=== PATIENT | male | born 1955 | race Caucasian/White ===

== ENCOUNTER → 2017-07-09 | Outpatient (CLI) | payer BC ==
--- NOTE | 2017-07-09 10:53 | US ---
EXAMINATION TYPE: US abdomen complete DATE OF EXAM: 07/09/2017 COMPARISON: NONE CLINICAL HISTORY: D61.818 Pancytopenia, I10 Hypertension; HT6'3, WT 300lbs EXAM MEASUREMENTS: Liver Length: 21.4 cm Gallbladder Wall: 2.7mm CBD: 0.3 cm Spleen: 20.2 x 21.5 x 10.9 cm Right Kidney: 12.5 x 6.4 x 5.3 cm Left Kidney: 12.4 x 6.1 x 4.6 cm Pancreas: hyperechoic Liver: enlarged; Portal Vein flow is documented to liver and Hepatic Vein flow is to IVC, and Common Hepatic Artery Flow is to liver. Hepatic echotexture is hyperechoic with diminished visualization of the portal triads. This limits evaluation for hepatic masses. Additionally there is a slight nodul ar contour of the liver. Gallbladder: wnl Evidence for sonographic Yang's sign: No CBD: wnl Spleen: Markedly enlarged Right Kidney: No hydronephrosis or masses seen Left Kidney: No hydronephrosis or masses seen Upper IVC: wnl Abd Aorta: wnl as visualized due to patient body habitus IMPRESSION: 1. No evidence of portal venous occlusion. Appropriate directionality of flow within the portal vein, hepatic vein and hepatic artery. 2. Enlarged and hyperechoic hepatic echotexture. Although this most commonly relates to hepatic steat osis there is also a nodular contour the liver and correlation with serum laboratory values is recomm ended as this could also represent other underlying hepatocellular diseases. 3. Marked enlargement of the spleen measuring up to 21.5 cm.
== END | disposition home or self-care (01) ==
LOC: RADUSWWP 08:03
PROVIDERS: ATTEND Internal Medicine Hematology & Oncology
DX: K76.89 Other specified diseases of liver (principal); D61.818 Other pancytopenia; I10 Essential (primary) hypertension; E11.9 Type 2 diabetes mellitus without complications; R16.1 Splenomegaly, not elsewhere classified; R93.2 Abnormal findings on diagnostic imaging of liver and biliary tract
CPT/HCPCS: 76700

== ENCOUNTER 2017-07-17 06:03 | Day surgery (SDC) | payer BC ==
[~2017-07-17 06:03] MED LIST: LACTATED RINGERS 1,000 ML IV SCH; LIDOCAINE 1% 20 ML VIAL (10MG/ML) FOR IV START INTRADERMA PRN
[2017-07-17 07:09] VITALS: TEMP 98.6
[2017-07-17 07:18] LABS: Glucose,Whole Blood 194 mg/dL (75-99)
[2017-07-17] MEDS ORDERED: MIDAZOLAM 2 MG/2 ML VIAL ONE (07:34)
[2017-07-17] MEDS ORDERED: ePHEDrine SULFATE/0.9% NACL/PF 50 MG/5 ML SYRINGE IV ONE (07:34)
[2017-07-17] MEDS ORDERED: PROPOFOL 10 MG/ML 20 ML VIAL IV ONE (07:34)
[2017-07-17] MEDS ORDERED: LIDOCAINE 1% INJ 10MG/ML (20 ML MDV) ONE (07:34)
[2017-07-17] MEDS ORDERED: LIDOCAINE 2% INJ 20 MG/ML SQ ONE ×2 (07:35→07:46)
[2017-07-17 08:33] VITALS: BP 138/60; PULSE 77; RESP 18
[2017-07-17 09:13] LABS: Basophils % (A) 0 %; Eosinophils # (A) 0.2 k/uL (0-0.7); Eosinophils % (A) 7 %; HCT 35.8 % (39.0-53.0); HGB 12.6 gm/dL (13.0-17.5); Lymphocytes # (A) 0.6 k/uL (1.0-4.8); Lymphocytes % (A) 20 %; MCH 31.8 pg (25.0-35.0); MCHC 35.2 g/dL (31.0-37.0); MCV 90.5 fL (80.0-100.0); Mean Platelet Volume 8.5; Monocytes # (A) 0.2 k/uL (0-1.0); Monocytes % (A) 6 %; Neutrophils # (A) 1.8 k/uL (1.3-7.7); Neutrophils % (A) 65 %; RBC 3.95 m/uL (4.30-5.90); RDW 14.1 % (11.5-15.5); WBC 2.8 k/uL (3.8-10.6)
[2017-07-17 10:27] LABS: Platelet Count 88 k/uL (150-450)
--- NOTE | 2017-07-17 11:13 | PCN ---
PROCEDURE NOTE PREOPERATIVE DIAGNOSIS: Pancytopenia. POSTOPERATIVE DIAGNOSIS: Pancytopenia. ANESTHESIA: Local with IV systemic sedation. PROCEDURE: Bone marrow aspirate and biopsy site right iliac crest. DETAIL: Utilizing sterile technique, the skin overlying the right iliac crest was prepared with alcohol, after adequate sterile draping, systemic sedation and local anesthesia with 1% lidocaine, a size 11 4 inch StatSheetshidi needle was utilized to access the periosteum with some difficulty due to patient habitus. A total of 5 mL of aspirate and 5 mm of core biopsies were obtained. The patient tolerated the procedure well. There was no immediate procedure-related complication. TOTAL BLOOD LOSS: Less than 1 mL. RESULTS: Pending. MMODL / IJN: [id number] /
== END 2017-07-17 09:05 | disposition home or self-care (01) ==
LOC: OR 06:03
PROVIDERS: ATTEND Internal Medicine Hematology & Oncology
DX: D61.818 Other pancytopenia (principal); K76.0 Fatty (change of) liver, not elsewhere classified; E11.9 Type 2 diabetes mellitus without complications; I10 Essential (primary) hypertension; E03.9 Hypothyroidism, unspecified; N28.9 Disorder of kidney and ureter, unspecified; E66.01 Morbid (severe) obesity due to excess calories; Z68.38 Body mass index [BMI] 38.0-38.9, adult; Z79.84 Long term (current) use of oral hypoglycemic drugs; Z79.1 Long term (current) use of non-steroidal anti-inflammatories (NSAID); Z79.890 Hormone replacement therapy; Z79.4 Long term (current) use of insulin; Z79.899 Other long term (current) drug therapy; Z91.048 Other nonmedicinal substance allergy status; Z91.040 Latex allergy status; Z87.891 Personal history of nicotine dependence
CPT/HCPCS: 85025; 38222; J2001 ×2; J2250; J2704

== ENCOUNTER → 2017-08-14 | Outpatient (CLI) | payer BC ==
[2017-08-14 17:25] LABS: Blood Urea Nitrogen 18 mg/dL (9-20)
--- NOTE | 2017-08-15 09:09 | CT ---
EXAMINATION TYPE: CT abdomen pelvis wo/w con DATE OF EXAM: 08/14/2017 COMPARISON: Abdominal ultrasound dated 07/09/2017. HISTORY: Left side abd pain. CT DLP: 3695 mGycm Automated exposure control for dose reduction was used. TECHNIQUE: Helical acquisition of images was performed from the lung bases through the pelvis. CONTRAST: Performed with Oral Contrast and with IV Contrast, patient injected with 100ml mL of Isovue M300. Pre contrast images were obtained of the abdomen. FINDINGS: LUNG BASES: No significant abnormality is appreciated. LIVER/GB: There is a very mild nodular contour of the liver that in combination with the prior ultras ound findings may relate to hepatocellular disease. Given the below splenic findings Constellation of findings may relate to portal venous hypertension as the portal vein is engorged near the portal spl enic confluence measuring 2.1 cm. No gross evidence of portal venous thrombosis. Recanalization of th e umbilical vein is identified. PANCREAS: No significant abnormality is seen. No ductal dilatation. SPLEEN: There is marked splenomegaly with the spleen measuring 20.0 cm in craniocaudal dimension and 23.2 cm in anterior posterior (longitudinal) dimension. Perisplenic varices are noted within the mese ntery of the splenic hilum and lateral to the spleen. Splenule is noted adjacent to the [place] spleen . ADRENALS: No significant abnormality is seen. KIDNEYS: Superior-medial to the left kidney there is a nonenhancing fluid attenuated 7.4 x 4.0 cm les ion within the retroperitoneum. This does not demonstrate a definitive claw sign with the left kidney and does not appear to emanate from the adrenal gland. This appears to have mass effect upon the adr enal gland displacing it anterior laterally. 3 mm nonobstructing left lower pole renal calculus is seen. 1.3 cm right lower pole renal cyst is pre sent. Punctate 2 mm right upper pole nonobstructing calculus is present. No hydronephrosis bilaterall y. FREE AIR: No free air is visualized. ADENOPATHY: Few nonenlarged epiphrenic lymph nodes are seen. No greater than 1 cm short axis lymph n odes are noted within the abdomen or pelvis. REPRODUCTIVE ORGANS: No significant abnormality is seen URINARY BLADDER: Incompletely distended likely accounting for circumferential wall thickening. OSSEOUS STRUCTURES: Moderate multilevel degenerative changes of the visualized thoracolumbar and lum bosacral spine. Extensive degenerative changes with CAM deformities of the femoral acetabular joints are seen. BOWEL: There is mild fat stranding around the hepatic flexure from series 6 image 41 inferiorly to i mage 54. In the setting of portal venous hypertension and cirrhosis this may represent congestive col opathy and mild mesenteric edema without preethi ascites. Few scattered colonic diverticula are present without evidence of acute diverticulitis. Minimal fat s tranding is also seen within the left lateral conal fascia likely related to mesenteric congestion. IMPRESSION: 1. CONSTELLATION OF FINDINGS SUGGESTING HEPATIC CIRRHOSIS AND UNDERLYING PORTAL VENOUS HYPERTENSION. THESE FINDINGS INCLUDE SUBTLE NODULAR CONTOUR OF THE LIVER, MARKED SPLENOMEGALY, PROBABLE CONGESTIVE COLOPATHY OF THE HEPATIC FLEXURE, MILD MESENTERIC EDEMA, PORTAL VEIN ENLARGEMENT AND PERISPLENIC VARI NATE. 2. NONENHANCING FLUID ATTENUATED RETROPERITONEAL LESION. THIS IS NOT DEFINITIVELY CONNECTED TO THE LE FT UPPER POLE OF THE KIDNEY BUT COULD REPRESENT AN EXOPHYTIC RENAL CYST, LYMPHANGIOMA, BENIGN MESENTE GLENN/RETROPERITONEAL CYST OR LESS LIKELY EXTRA MEDULLARY HEMATOPOIESIS. SHORT-TERM FOLLOW-UP IS RECOMM ENDED TO ENSURE STABILITY IN 6 MONTHS ETIOLOGY IS UNKNOWN. 3. BILATERAL NONOBSTRUCTING RENAL CALCULI.
== END | disposition home or self-care (01) ==
LOC: RADCTMAIN 16:43
DX: Z01.812 Encounter for preprocedural laboratory examination (principal); N20.0 Calculus of kidney; R16.1 Splenomegaly, not elsewhere classified; R19.09 Other intra-abdominal and pelvic swelling, mass and lump; D61.818 Other pancytopenia
CPT/HCPCS: 82565; 84520; 74178; 36415; Q9967

== ENCOUNTER → 2019-06-10 | Outpatient (CLI) | payer MEDICARE ==
--- NOTE | 2019-06-10 10:21 | US ---
EXAMINATION TYPE: US abdomen limited DATE OF EXAM: 06/10/2019 COMPARISON: NONE CLINICAL HISTORY: 64-year-old male K74.60 Unspecified cirrhosis of liver. TECHNIQUE: Multiple sonographic images of the right upper quadrant are obtained. FINDINGS: EXAM MEASUREMENTS: Liver Length: 15.9 cm Gallbladder Wall: 0.5 cm CBD: 5.8 mm Right Kidney: 11.7 x 4.8 x 5.6 cm VACUUM CLOSING MACHINE OPERATOR NOTES: Patient of large body habitus. Pancreas: Obscured by bowel gas Liver: Diffuse heterogeneity. No focal lesion seen. Gallbladder: wall slightly thickened. No shadowing calculi, abnormal distention, or surrounding flui d. Evidence for sonographic Yang's sign: no CBD: Upper limits of normal in caliber, acceptable given the patient's age. Right Kidney: No hydronephrosis. IMPRESSION: 1. Diffuse heterogeneity to the liver. Correlate for nonspecific hepatocellular disease. 2. Mild gallbladder wall thickening without ancillary findings of acute cholecystitis. This is nonspe cific and may be seen when there is adjacent inflammation or in the setting of fluid overload states. If concern for chronic cholecystitis, HIDA scan with ejection fraction can be performed.
== END | disposition home or self-care (01) ==
LOC: RADUSWWP 07:56
PROVIDERS: ATTEND Internal Medicine Gastroenterology
DX: K76.89 Other specified diseases of liver (principal); K82.8 Other specified diseases of gallbladder
CPT/HCPCS: 76705

== ENCOUNTER → 2019-12-17 | Outpatient (CLI) | payer MEDICARE ==
--- NOTE | 2019-12-17 11:55 | US ---
EXAMINATION TYPE: US abdomen limited DATE OF EXAM: 12/17/2019 COMPARISON: CT, US CLINICAL HISTORY: K74.60. Cirrhosis EXAM MEASUREMENTS: Liver Length: 16.9 cm. Normal less than 15.5 cm. Gallbladder Wall: 0.3 cm CBD: 0.4 cm Right Kidney: 10.9 x 5.0 x 5.5 cm Pancreas: Body wnl, head and tail obscured by overlying bowel gas Liver: Heterogeneous, difficult to penetrate, similar to previous exams. This may reflect some mild fatty infiltration. Gallbladder: wnl Evidence for sonographic Ynag's sign: No CBD: wnl Right Kidney: wnl IMPRESSION: 1. Mild hepatomegaly with suggestion of mild fatty infiltration
[2019-12-17 12:38] LABS: ALT 21 U/L (4-49); AST 29 U/L (17-59); African American GFR (CKD) >90 (>60 ml/min/1.73 sqM); Alkaline Phosphatase 52 U/L (38-126); Anion Gap 6 mmol/L; Blood Urea Nitrogen 18 mg/dL (9-20); Calcium 9.4 mg/dL (8.4-10.2); Carbon Dioxide 27 mmol/L (22-30); Chloride 106 mmol/L (98-107); Glucose 144 mg/dL (74-99); Non-African American GFR(CKD) 78 (>60 ml/min/1.73 sqM); Potassium 5.2 mmol/L (3.5-5.1); Sodium 139 mmol/L (137-145); Total Bilirubin 1.3 mg/dL (0.2-1.3); Total Protein 6.6 g/dL (6.3-8.2)
[2019-12-17 13:10] LABS: HCT 41.1 % (39.0-53.0); HGB 13.4 gm/dL (13.0-17.5); MCH 31.5 pg (25.0-35.0); MCHC 32.6 g/dL (31.0-37.0); MCV 96.6 fL (80.0-100.0); Mean Platelet Volume 9.5; RBC 4.25 m/uL (4.30-5.90); RDW 13.7 % (11.5-15.5); WBC 2.7 k/uL (3.8-10.6)
[2019-12-17 13:12] LABS: Platelet Count 70 k/uL (150-450)
== END | disposition home or self-care (01) ==
LOC: RADUSWWP 10:12
PROVIDERS: ATTEND Internal Medicine Gastroenterology
DX: R16.0 Hepatomegaly, not elsewhere classified (principal)
CPT/HCPCS: 36415; 76705; 80053; 82105; 85027

== ENCOUNTER 2021-02-02 06:17 | Day surgery (SDC) | payer MEDICARE ==
[2021-01-28 15:55] VITALS: BMI 39.4
[2021-02-02] MEDS ORDERED: LIDOCAINE 1% (10MG/ML) FOR IV START INTRADERMA PRN (06:39)
[2021-02-02] MEDS ORDERED: LACTATED RINGERS 1,000 ML IV SCH (06:39)
[2021-02-02 07:03] VITALS: TEMP 98.2
[2021-02-02 07:07] LABS: Glucose,Whole Blood 169 mg/dL (75-99)
[2021-02-02] MEDS ORDERED: PROPOFOL 10 MG/ML 20 ML VIAL IV ONE (07:11)
--- NOTE | 2021-02-02 07:40 | P.PCN ---
Date of Procedure: 02/02/21 Procedure(s) Performed: Brief history: Patient is a pleasant 66-year-old white male with history of nonalcoholic cirrhosis of the liver scheduled for an elective upper endoscopy as well as colonoscopy as a part of evaluation of iron deficiency anemia. Procedure performed: Esophagogastroduodenoscopy with biopsy Colonoscopy Preoperative diagnosis: Cirrhosis of the liver Iron deficiency anemia Anesthesia: MAC Procedure: After informed consent was obtained from the patient was brought into the endoscopy unit and IV sedation was administered by anesthesia under continuous monitoring. Initially upper endoscopy was done. The Olympus GF 160 video endoscope was inserted inserted into the mouth and esophagus intubated without any difficulty and was gradually advanced into the stomach and duodenum and carefully examined. The bulb and second part of the duodenum had duodenitis with small superficial duodenal ulcers. There was a 5 limited antral ulcer noted with severe antral gastritis and biopsies were done from this area.. The scope was then withdrawn into the stomach adequately insufflated with air and upon careful examination the antrum and body, had diffuse gastritis. The cardia and fundus appeared normal. The scope was then withdrawn into the esophagus. The GE junction was located at 40 cm to the incisors. It appeared regular with superficial erosions consistent with LA grade B reflux esophagitis. There were large mid and distal esophageal varices seen. Rest of the esophagus appeared normal. Patient tolerated the procedure well. At this time the patient continued to remain sedation. Initial digital rectal examination was normal. Olympus CF 160 video colonoscope was then inserted into the rectum and gradually advanced to the cecum without any difficulty. Careful examination was performed as the scope was gradually being withdrawn. The prep was excellent. The cecum, ascending colon, transverse colon, descending colon, sigmoid colon and rectum appeared normal. Retroflexion was performed in the rectum and monitor hemorrhoids were noted. Patient tolerated the procedure well. Impression: 1. Upper endoscopy revealed large esophageal varices, LA grade B reflux esophagitis, small antral and duodenal ulcers 2. Colonoscopy was within normal limits with no evidence of colitis or colorectal neoplasia Recommendations: Findings of this examination were discussed with the patient as well as his family. He was advised to follow with the biopsy results. He'll be started on Prilosec 20 mg daily for reflux esophagitis as well as propranolol 10 mg 3 times daily for esophageal varices. He'll be seen in office in 3-4 weeks
[2021-02-02 07:46] VITALS: RESP 16
[2021-02-02 08:04] VITALS: BP 148/60; PULSE 66
== END 2021-02-02 08:38 | disposition home or self-care (01) ==
LOC: ORWHC2ENDO 06:17
PROVIDERS: ATTEND Internal Medicine Gastroenterology
DX: K29.50 Unspecified chronic gastritis without bleeding (principal); K74.69 Other cirrhosis of liver; K26.9 Duodenal ulcer, unspecified as acute or chronic, without hemorrhage or perforation; I85.10 Secondary esophageal varices without bleeding; D50.9 Iron deficiency anemia, unspecified; K21.00 Gastro-esophageal reflux disease with esophagitis, without bleeding; I10 Essential (primary) hypertension; E11.9 Type 2 diabetes mellitus without complications; E07.9 Disorder of thyroid, unspecified; Z79.899 Other long term (current) drug therapy; Z88.3 Allergy status to other anti-infective agents
CPT/HCPCS: 88305; 43239; J2704

== ENCOUNTER 2024-01-10 17:38 | Observation (INO) | payer MEDICARE, OTHER ==
--- NOTE | 2024-01-10 18:27 | ED ---
SOB HPI - General Chief Complaint: Shortness of Breath Stated Complaint: JOSIANE/pneumonia Time Seen by Provider: 01/10/24 18:06 Source: patient, RN notes reviewed, old records reviewed Mode of arrival: ambulatory Limitations: no limitations - History of Present Illness Initial Comments: This is a 68-year-old male to the ER for evaluation of severe shortness of breath with a significant right-sided pleural effusion. Patient was told to come to the emergency department by infectious disease doctor due to significant effusion MD Complaint: shortness of breath, pain with inspiration, "asthma attack", anxiety -: days(s) Severity: severe Severity scale (1-10): 10 Improves With: nothing Worsens With: nothing Known History Of: COPD Context: anxiety Associated Symptoms: denies other symptoms - Related Data Home Medications Medication Instructions Recorded Confirmed hydrALAZINE HCL [Apresoline] 50 mg PO BID 12/11/14 01/10/24 Insulin Glargine [Lantus Vial] 16 units SQ DAILY 07/16/17 01/10/24 Levothyroxine Sodium 25 mcg PO DAILY 07/16/17 01/10/24 Dicyclomine [Bentyl] 20 mg PO QID PRN 01/28/21 01/10/24 Ergocalciferol [Vitamin D2 (1250 1,250 mcg PO TH 01/28/21 01/10/24 Mcg = 92399 Iu)] Amoxic-Pot Clav 875-125Mg 1 tab PO BID 01/10/24 01/10/24 [Augmentin 875-125] Apixaban [Eliquis] 2.5 mg PO BID 01/10/24 01/10/24 Atorvastatin [Lipitor] 20 mg PO HS 01/10/24 01/10/24 Cholestyramine (with Sugar) 4 gm PO BID PRN 01/10/24 01/10/24 [Cholestyramine Packet] Cyanocobalamin (Vitamin B-12) 1,000 mcg PO DAILY 01/10/24 01/10/24 [Vitamin B-12] Escitalopram [Lexapro] 10 mg PO DIRECTED 01/10/24 01/10/24 Furosemide [Lasix] 20 mg PO DAILY 01/10/24 01/10/24 Hydrocortisone [Cortizone-10] 1 applic TOPICAL DAILY PRN 01/10/24 01/10/24 Melatonin 10 mg PO HS 01/10/24 01/10/24 Omeprazole 40 mg PO DAILY 01/10/24 01/10/24 Potassium Chloride [Klor-Con M20] 20 meq PO DIRECTED 01/10/24 01/10/24 Spironolactone [Aldactone] 50 mg PO DAILY 01/10/24 01/10/24 Vitamin E 800mg 800 mg PO DAILY 01/10/24 01/10/24 carvediloL [Coreg] 3.125 mg PO BID 01/10/24 01/10/24 Allergies Allergy/AdvReac Type Severity Reaction Status Date / Time CATGUT SUTURES Allergy Rash/Hives-Infection Uncoded 01/10/24 20:08 @ site petrolium based Allergy Rash/Hives Uncoded 01/10/24 20:08 topicals-neosporin Review of Systems ROS Statement: Those systems with pertinent positive or pertinent negative responses have been documented in the HPI. ROS Other: All systems not noted in ROS Statement are negative. Past Medical History Past Medical History: Diabetes Mellitus, Hypertension, Osteoarthritis (OA), Vascular Disorder Additional Past Medical History / Comment(s): VARICOSE VEINS,HAS HEMORRHOIDS- OCCASIONAL BLEED, ARTHRITIS IN KNEES & SHOULDERS, ANESMIA, DIVERTICULITIS, CIRRHOSIS OF THE LIVER-NON ALCOHOLIC. pt is on liver transplant list - December 2023 History of Any Multi-Drug Resistant Organisms: None Reported Past Surgical History: Orthopedic Surgery, Tonsillectomy Additional Past Surgical History / Comment(s): ARTHROSCOPIC LT KNEE, ROTATOR CUFF REPAIR RT SHOULDER. THROAT SURGERY FOR TUMOR, NON CANCEROUS. CATARACT SURGERY LEFT EYE Past Anesthesia/Blood Transfusion Reactions: No Reported Reaction Past Psychological History: No Psychological Hx Reported Smoking Status: Former smoker Past Alcohol Use History: None Reported Past Drug Use History: None Reported - Past Family History Mother Family Medical History: CVA/TIA, Hypertension Father Family Medical History: Dementia, Diabetes Mellitus Additional Family Medical History / Comment(s): ALZHEIMER'S General Exam Limitations: no limitations General appearance: anxious, in distress Head exam: Present: atraumatic, normocephalic, normal inspection Eye exam: Present: normal appearance, PERRL, EOMI. Absent: scleral icterus, conjunctival injection, periorbital swelling ENT exam: Present: normal exam, mucous membranes moist Neck exam: Present: normal inspection. Absent: tenderness, meningismus, lymphadenopathy Respiratory exam: Present: accessory muscle use, decreased breath sounds, prolonged expiratory. Absent: respiratory distress, wheezes, rales, rhonchi, stridor Cardiovascular Exam: Present: regular rate, normal rhythm, normal heart sounds. Absent: systolic murmur, diastolic murmur, rubs, gallop, clicks GI/Abdominal exam: Present: soft, normal bowel sounds. Absent: distended, tenderness, guarding, rebound, rigid Extremities exam: Present: normal inspection, full ROM, normal capillary refill. Absent: tenderness, pedal edema, joint swelling, calf tenderness Back exam: Present: normal inspection Neurological exam: Present: alert, oriented X3, CN II-XII intact Psychiatric exam: Present: normal affect, normal mood Skin exam: Present: warm, dry, intact, normal color. Absent: rash Course Vital Signs 01/10/24 01/10/24 01/10/24 17:40 20:07 22:24 Temperature 99.2 F Pulse Rate 84 92 72 Respiratory 17 16 18 Rate Blood Pressure 177/65 159/59 150/56 O2 Sat by Pulse 96 93 L 92 L Oximetry 01/10/24 01/10/24 01/11/24 23:34 23:42 00:31 Temperature 98.2 F Pulse Rate 74 78 Respiratory 16 16 Rate Blood Pressure 160/61 158/59 O2 Sat by Pulse 92 L 93 L Oximetry 01/11/24 01/11/24 01/11/24 02:18 04:23 07:35 Temperature 98.1 F 98.9 F Pulse Rate 71 70 70 Respiratory 16 16 18 Rate Blood Pressure 135/61 136/50 123/40 O2 Sat by Pulse 94 L 92 L Oximetry 01/11/24 01/11/24 01/11/24 08:05 11:03 15:46 Temperature Pulse Rate 71 70 Respiratory 18 18 Rate Blood Pressure 144/55 144/55 O2 Sat by Pulse 94 L 95 95 Oximetry 01/11/24 17:57 Temperature Pulse Rate 70 Respiratory 18 Rate Blood Pressure 144/55 O2 Sat by Pulse 94 L Oximetry - Reevaluation(s) Reevaluation #1: 01/10/24 20:36 Medical records reviewed Reevaluation #2: 01/10/24 20:36 Patient symptoms unchanged Reevaluation #3: 01/10/24 20:36 Patient informed of results questions answered Reevaluation #4: Was pt. sent in by a medical professional or institution (ITZEL Koroma, STENOTYPE MACHINE OPERATOR, urgent care, hospital, or custodial...) When possible be specific @ -no Did you speak to anyone other than the patient for history (EMS, parent, family, police, friend...)? What history was obtained from this source @ -no Did you review nursing and triage notes (agree or disagree)? Why? @ -agree Are old charts reviewed (outside hosp., previous admission, EMS record, old EKG, old radiological studies, urgent care reports/EKG's, custodial records)? Report findings @ -yes Differential Diagnosis (chest pain, altered mental status, abdominal pain women, abdominal pain men, vaginal bleeding, weakness, fever, dyspnea, syncope, headache, dizziness, GI bleed, back pain, seizure, CVA, palpatations, mental health, musculoskeletal)? @ -prior EKG interpreted by me (3pts min.). @ -yes X-rays interpreted by me (1pt min.). @ -yes positive for pleural effusion CT interpreted by me (1pt min.). @ -Yes positive pleural effusion U/S interpreted by me (1pt. min.). @ -no What testing was considered but not performed or refused? (CT, X-rays, U/S, labs)? Why? @ -none What meds were considered but not given or refused? Why? @ -none Did you discuss the management of the patient with other professionals (professionals i.e. ITZEL Koroma, STENOTYPE MACHINE OPERATOR, lab, RT, psych nurse, social worker assistant, animal biologist, t eacher, protocol officer, mental health case manager)? Give summary @ -no Was smoking cessation discussed for >3mins.? @ -no Was critical care preformed (if so, how long)? @ -yes31 Were there social determinants of health that impacted care today? How? (Homelessness, low income, unemployed, alcoholism, drug addiction, transportation, low edu. Level, literacy, decrease access to med. care, snf, rehab)? @ -none Was there de-escalation of care discussed even if they declined (Discuss DNR or withdrawal of care, Hospice)? DNR status @ -no What co-morbidities impacted this encounter? (DM, HTN, Smoking, COPD, CAD, Cancer, CVA, ARF, Chemo, Hep., AIDS, mental health diagnosis, sleep apnea, morbid obesity)? @ -none Was patient admitted / discharged? Hospital course, mention meds given and route, prescriptions, significant lab abnormalities, going to OR and other pertinent info. @ - 68 male will be admitted for severe dyspnea hypoxia and significant right pleural effusion need for thoracentesis Admitted Undiagnosed new problem with uncertain prognosis? @ -no Drug Therapy requiring intensive monitoring for toxicity (Heparin, Nitro, Insulin, Cardizem)? @ -no Were any procedures done? @ -no Diagnosis/symptom? @ -Pleural effusion and hypoxia Acute, or Chronic, or Acute on Chronic? @ -Acute Uncomplicated (without systemic symptoms) or Complicated (systemic symptoms)? @ -Complicated Side effects of treatment? @ -no Exacerbation, Progression, or Severe Exacerbation? @ -exacerbation Poses a threat to life or bodily function? How? (Chest pain, [place], [place], pneumonia, PE, COPD, DKA, ARF, appy, cholecystitis, CVA, Diverticulitis, Homicidal, Suicidal, threat to staff... and all critical care pts) @ -yes Reevaluation #5: 01/10/24 20:36 Differential Dyspnea: Coronary syndrome, arrhythmia, tamponade, asthma, COPD, pulmonary embolism, pneumonia, pneumothorax, pulmonary effusion, anaphylaxis, diabetic ketoacidosis, flailed chest, pulmonary contusion, diaphragmatic rupture, anemia, neuromuscular, this is not meant to be an all-inclusive list. Medical Decision Making - Medical Decision Making 68 male will be admitted for severe dyspnea hypoxia and significant right pleural effusion need for thoracentesis - Lab Data Result diagrams: 01/12/24 06:25 01/12/24 06:25 Lab Results 01/10/24 01/10/24 01/10/24 Range/Units 18:15 18:15 18:15 WBC 3.1 L (3.8-10.6) k/uL RBC 2.39 L (4.30-5.90) m/uL Hgb 8.9 L (13.0-17.5) gm/dL Hct 26.5 L (39.0-53.0) % MCV 110.8 H (80.0-100.0) fL MCH 37.4 H (25.0-35.0) pg MCHC 33.7 (31.0-37.0) g/dL RDW 17.0 H (11.5-15.5) % Plt Count 119 L (150-450) k/uL MPV 8.7 Neutrophils % 49 % Lymphocytes % 27 % Monocytes % 12 % Eosinophils % 8 % Basophils % 1 % Neutrophils # 1.5 (1.3-7.7) k/uL Lymphocytes # 0.9 L (1.0-4.8) k/uL Monocytes # 0.4 (0-1.0) k/uL Eosinophils # 0.3 (0-0.7) k/uL Basophils # 0.0 (0-0.2) k/uL Poikilocytosis Slight Anisocytosis Slight Macrocytosis Marked A PT 18.0 H (10.0-12.5) sec INR 1.8 H (<1.2) APTT 33.2 H (22.0-30.0) sec Sodium 133 L (137-145) mmol/L Potassium 4.1 (3.5-5.1) mmol/L Chloride 95 L (98-107) mmol/L Carbon Dioxide 32 H (22-30) mmol/L Anion Gap 6 mmol/L BUN 13 (9-20) mg/dL Creatinine 0.95 (0.66-1.25) mg/dL Est GFR (CKD-EPI)AfAm >90 (>60 ml/min/1.73 sqM) Est GFR (CKD-EPI)NonAf 81 (>60 ml/min/1.73 sqM) Glucose 254 H (74-99) mg/dL Calcium 8.4 (8.4-10.2) mg/dL Magnesium 1.7 (1.6-2.3) mg/dL Total Bilirubin 6.9 H (0.2-1.3) mg/dL AST 51 (17-59) U/L ALT 25 (4-49) U/L Alkaline Phosphatase 59 (38-126) U/L Troponin I (0.000-0.034) ng/mL NT-Pro-B Natriuret Pep 3410 pg/mL Total Protein 5.1 L (6.3-8.2) g/dL Albumin 2.5 L (3.5-5.0) g/dL 01/10/24 Range/Units 18:15 WBC (3.8-10.6) k/uL RBC (4.30-5.90) m/uL Hgb (13.0-17.5) gm/dL Hct (39.0-53.0) % MCV (80.0-100.0) fL MCH (25.0-35.0) pg MCHC (31.0-37.0) g/dL RDW (11.5-15.5) % Plt Count (150-450) k/uL MPV Neutrophils % % Lymphocytes % % Monocytes % % Eosinophils % % Basophils % % Neutrophils # (1.3-7.7) k/uL Lymphocytes # (1.0-4.8) k/uL Monocytes # (0-1.0) k/uL Eosinophils # (0-0.7) k/uL Basophils # (0-0.2) k/uL Poikilocytosis Anisocytosis Macrocytosis PT (10.0-12.5) sec INR (<1.2) APTT (22.0-30.0) sec Sodium (137-145) mmol/L Potassium (3.5-5.1) mmol/L Chloride (98-107) mmol/L Carbon Dioxide (22-30) mmol/L Anion Gap mmol/L BUN (9-20) mg/dL Creatinine (0.66-1.25) mg/dL Est GFR (CKD-EPI)AfAm (>60 ml/min/1.73 sqM) Est GFR (CKD-EPI)NonAf (>60 ml/min/1.73 sqM) Glucose (74-99) mg/dL Calcium (8.4-10.2) mg/dL Magnesium (1.6-2.3) mg/dL Total Bilirubin (0.2-1.3) mg/dL AST (17-59) U/L ALT (4-49) U/L Alkaline Phosphatase (38-126) U/L Troponin I <0.012 (0.000-0.034) ng/mL NT-Pro-B Natriuret Pep pg/mL Total Protein (6.3-8.2) g/dL Albumin (3.5-5.0) g/dL - EKG Data -: EKG Interpreted by Me (EKG is sinus 78 CA 202 QRS 103 QTc 430) - Radiology Data Radiology results: report reviewed (Chest x-ray CT chest show significant right- sided pleural effusion), image reviewed Critical Care Time Critical Care Time: Yes Total Critical Care Time: 31 Disposition Clinical Impression: Recurrent right pleural effusion, Pleural effusion, right, Dyspnea, Hypoxia Disposition: ADMITTED IP TO THIS [facility] Condition: Stable Is patient prescribed a controlled substance at d/c from ED?: No Time of Disposition: 20:30
[2024-01-10 18:31] LABS: Anisocytosis Slight; Basophils % (A) 1 %; Eosinophils # (A) 0.3 k/uL (0-0.7); Eosinophils % (A) 8 %; HCT 26.5 % (39.0-53.0); HGB 8.9 gm/dL (13.0-17.5); Lymphocytes # (A) 0.9 k/uL (1.0-4.8); Lymphocytes % (A) 27 %; MCH 37.4 pg (25.0-35.0); MCHC 33.7 g/dL (31.0-37.0); MCV 110.8 fL (80.0-100.0); Macrocytosis Marked; Mean Platelet Volume 8.7; Monocytes # (A) 0.4 k/uL (0-1.0); Monocytes % (A) 12 %; Neutrophils # (A) 1.5 k/uL (1.3-7.7); Neutrophils % (A) 49 %; Platelet Count 119 k/uL (150-450); Poikilocytosis Slight; RBC 2.39 m/uL (4.30-5.90); WBC 3.1 k/uL (3.8-10.6)
--- NOTE | 2024-01-10 18:44 | XR ---
EXAMINATION TYPE: XR chest 2V DATE OF EXAM: 01/10/2024 6:37 PM CLINICAL INDICATION: Male, 68 years old with history of difficulty breathing; COMPARISON: None TECHNIQUE: XR chest 2V Frontal view of the chest. FINDINGS: Lungs/Pleura: There is no evidence of focal consolidation, or pneumothorax. Pulmonary vascularity: Unremarkable. Heart/mediastinum: Cardiomediastinal silhouette is unremarkable. Musculoskeletal: Degenerative changes of the shoulder joints. IMPRESSION: Near complete opacification of right hemithorax likely secondary to large pleural effusion. [facility], , 01/10/2024 6:42 PM
[2024-01-10 18:50] LABS: ALT 25 U/L (4-49); AST 51 U/L (17-59); African American GFR (CKD) >90 (>60 ml/min/1.73 sqM); Albumin 2.5 g/dL (3.5-5.0); Alkaline Phosphatase 59 U/L (38-126); Anion Gap 6 mmol/L; Blood Urea Nitrogen 13 mg/dL (9-20); Calcium 8.4 mg/dL (8.4-10.2); Carbon Dioxide 32 mmol/L (22-30); Chloride 95 mmol/L (98-107); Glucose 254 mg/dL (74-99); Magnesium 1.7 mg/dL (1.6-2.3); Non-African American GFR(CKD) 81 (>60 ml/min/1.73 sqM); Potassium 4.1 mmol/L (3.5-5.1); Sodium 133 mmol/L (137-145); Total Bilirubin 6.9 mg/dL (0.2-1.3); Total Protein 5.1 g/dL (6.3-8.2)
[2024-01-10 18:59] LABS: NT-Pro-B-Type Natriuretic Pept 3410 pg/mL
[2024-01-10 19:10] LABS: INR 1.8 (<1.2); Partial Thromboplastin Time 33.2 sec (22.0-30.0)
[2024-01-10] MEDS ORDERED: RX INFO: IV CONTRAST WAS GIVEN 1 EACH MISC MISCELLANE PRN (19:13)
[2024-01-10] MEDS ORDERED: MORPHINE SULFATE 4 MG/ML SYRINGE IV PRN (19:45)
[2024-01-10] MEDS ORDERED: ONDANSETRON 4 MG/2 ML VIAL IVP PRN (19:45)
[2024-01-10] MEDS ORDERED: NALOXONE 0.4 MG/ML 1 ML VIAL IV PRN (19:45)
--- NOTE | 2024-01-10 20:07 | CT ---
EXAMINATION TYPE: CT chest w con CT DLP: 681.1 mGycm, Automated exposure control for dose reduction was used. DATE OF EXAM: 01/10/2024 7:34 PM COMPARISON: CT guided biopsy of the liver 04/11/2023. CT abdomen/pelvis 08/14/2017. CLINICAL INDICATION:Male, 68 years old with history of effusion; PHH, Effusion. TECHNIQUE: Multiple axial images were obtained through the chest. Sagittal and coronal reformats were created for review. Contrast used:100 ml mL of Isovue 300 with IV Contrast (None if empty) Oral contrast used: (None if empty) FINDINGS: LUNGS/ PLEURA: Large right pleural effusion with associated atelectasis. The left lung is overall chrissy ar. No obvious pneumothorax.. AIRWAY: Patent and unremarkable. HEART: Size within normal limits. Coronary artery atherosclerosis. MEDIASTINUM: No gross evidence of adenopathy. VASCULATURE: No aortic aneurysm. MUSCULOSKELETAL: No acute osseous abnormalities. SOFT TISSUES/LYMPH NODES: Mild soft tissue edema.. LOWER NECK: No significant findings. UPPER ABDOMEN: There is limited evaluation of the partially visualized upper abdomen on this single p hase study. Cirrhotic morphology of the liver is seen. There is a vague hypodense lesion seen within the right hepatic lobe with other areas of heterogenous attenuation within the parenchyma. The spleen is enlarged measuring at least 16.8 cm in craniocaudal dimension and has a heterogenous appearance w hich may be related to phase of contrast. Splenules are seen adjacently. There are multiple varicosit ies seen in the left upper abdomen. There is a nonspecific cystic focus seen in the left upper abdome n abutting the spleen measuring at least 9.3 cm. This was also noted on CT study from 2018. Large sof t tissue lesion is seen in the area of the left adrenal gland which may represent a splenule versus l eft adrenal gland mass measuring 4.2 cm. IMPRESSION: 1. Large right pleural effusion with associated atelectasis. 2. There are multiple findings within the upper abdomen that should be correlated with any known hist ory and other recent prior imaging otherwise further evaluation is recommended given the partial visu alization and limited characterization of this single phase study. These findings are summarized with in the upper abdomen. 3. Cirrhosis with findings of portal venous hypertension. 4. Soft tissue lesion in the area of the left adrenal gland measuring 4.2 cm. This can be further estuardo racterized with a dedicated nonemergent outpatient CT/MRI abdomen with and without IV contrast adrena l mass protocol. 5. Hypodense lesion seen within the right hepatic lobe. This can be also further characterized with a dedicated CT/MRI abdomen with and without IV contrast liver mass protocol. [facility], Workstation: [facility], 01/10/2024 8:04 PM
--- NOTE | 2024-01-10 23:35 | P.HPIM ---
History of Present Illness H&P Date: 01/10/24 Chief Complaint: SOB Patient is a 68-year-old male with cirrhosis, type 2 diabetes, hypertension presents to the ED with shortness of breath and weakness. Patient reports earlier today patient was being seen by his infectious disease doctor at [facility] where they ran some tests due to his ongoing pneumonia. Results for chest x-ray came in and ID physician requested the patient to go to the emergency department immediately due to large right-sided pleural effusion. Patient states that he has been short of breath the past couple of days along with increasing weakness. He states that shortness of breath is made worse when inhaling. He states he has had a history of recurrent pleural effusions. Patient admits to dry cough. Patient denies any fever, chills, chest pain, nausea, vomiting, urinary symptoms. patient is a candidate for liver transplant and he is on the list and has been waiting for a transplant, recently was told that he has CAD, but per his report they decided to delay placing stents in order not to delay liver transplant Review of systems: Pertinent positives and negatives as discussed in HPI, a complete review of systems was performed and all other systems are negative. Physical examination: Vitals: T 99.2F, VT 72, RR 18, BP 150/56, O2 sat 92% on room air General: non toxic, no distress, appears at stated age, obese Derm: no unusual rashes/lesions, warm Head: atraumatic, normocephalic, symmetric Eyes: EOMI, anicteric sclera, pupils equal round reactive to light ENT: Nose and ears atraumatic Mouth: no lip lesion, mucus membranes moist Cardiovascular: S1S2 reg, no murmur, bilateral 3+ pretibial pitting edema Lungs: Diminished right-sided lung sounds, no rhonchi, no rales, no accessory muscle use Abdominal: Mildly distended, tender to palpation in right upper quadrant, no guarding Ext: muscle strength 5 out of 5 in all 4 extremities grossly, no gross muscle atrophy Neuro: CN II-XI grossly intact, no gross focal neuro deficits Psych: Alert, oriented to person, place, and time Assessment/Plan: Patient is a 68-year-old male with cirrhosis, type 2 diabetes, hypertension presents to the ED with shortness of breath. ED documentation reviewed and case discussed with ED provider. Discussed with patient. The patient is admitted with an anticipated greater than 2 midnight stay for evaluation of dyspnea. Anticipated discharge place home. #. Dyspnea secondary to large right-sided pleural effusion Malignant versus nonmalignant CXR independently interpreted showed large right-sided pleural effusion Chest CT showed large right pleural effusion, cirrhosis with findings of portal venous hypertension, soft tissue lesion of the left adrenal gland measuring at 4.2 cm, hypodense lesion within the right hepatic lobe Patient with history of liver cirrhosis Patient with recent history of pneumonia proBNP 3410 Troponin <0.012 Ordered LDH Order echo director talent Pulmonology consulted #. Portal hypertension in the setting of liver cirrhosis Chest CT showed cirrhosis with findings of portal venous hypertension and hypodense lesion within the right hepatic lobe Total bilirubin 6.9, coag studies elevated PT 18, INR 1.8, APTT 33.2 Resume Aldactone 50 mg p.o. daily Lasix 40 mg IV once Replete electrolytes as needed, follow-up CMP #. Pancytopenia WBC 3.1, Hgb 8.9, platelet 119 Likely due to chronic liver failure Follow-up CBC #. Previously diagnosed community-acquired pneumonia Continue current home antibiotic management #. Type 2 diabetes #. Hyperglycemia Insulin SQ sliding scale Accu-Chek Monitor for hypoglycemia #. GERD Continue omeprazole 40 mg p.o. daily #. Hypertension Continue hydralazine 50 mg p.o. twice daily Continue Coreg 3.125 mg p.o. twice daily #. Hyperlipidemia Continue atorvastatin 20 mg p.o. at bedtime F: N/A E: Replete electrolytes as needed N: Heart healthy diet A: Fall precaution DVT prophylaxis: SCD , hold eliquis in anticipation for thoracentesis CODE STATUS: Full code Past Medical History Past Medical History: Diabetes Mellitus, Hypertension, Osteoarthritis (OA), Vascular Disorder Additional Past Medical History / Comment(s): VARICOSE VEINS,HAS HEMORRHOIDS- OCCASIONAL BLEED, ARTHRITIS IN KNEES & SHOULDERS, ANESMIA, DIVERTICULITIS, CIRRHOSIS OF THE LIVER-NON ALCOHOLIC. pt is on liver transplant list - December 2023 History of Any Multi-Drug Resistant Organisms: None Reported Past Surgical History: Orthopedic Surgery, Tonsillectomy Additional Past Surgical History / Comment(s): ARTHROSCOPIC LT KNEE, ROTATOR CUFF REPAIR RT SHOULDER. THROAT SURGERY FOR TUMOR, NON CANCEROUS. CATARACT SURGERY LEFT EYE Past Anesthesia/Blood Transfusion Reactions: No Reported Reaction Past Psychological History: No Psychological Hx Reported Smoking Status: Former smoker Past Alcohol Use History: None Reported Past Drug Use History: None Reported - Past Family History Mother Family Medical History: CVA/TIA, Hypertension Father Family Medical History: Dementia, Diabetes Mellitus Additional Family Medical History / Comment(s): ALZHEIMER'S Medications and Allergies Home Medications Medication Instructions Recorded Confirmed Type hydrALAZINE HCL [Apresoline] 50 mg PO BID 12/11/14 01/10/24 History Insulin Glargine [Lantus] 16 units SQ DAILY 07/16/17 01/10/24 History Levothyroxine Sodium 25 mcg PO DAILY 07/16/17 01/10/24 History Dicyclomine [Bentyl] 20 mg PO QID PRN 01/28/21 01/10/24 History Ergocalciferol [Vitamin D2 (1250 1,250 mcg PO TH 01/28/21 01/10/24 History Mcg = 43323 Iu)] Amoxic-Pot Clav 875-125Mg 1 tab PO BID 01/10/24 01/10/24 History [Augmentin 875-125] Apixaban [Eliquis] 2.5 mg PO BID 01/10/24 01/10/24 History Atorvastatin [Lipitor] 20 mg PO HS 01/10/24 01/10/24 History Cholestyramine (with Sugar) 4 gm PO BID PRN 01/10/24 01/10/24 History [Cholestyramine Packet] Cyanocobalamin (Vitamin B-12) 1,000 mcg PO DAILY 01/10/24 01/10/24 History [Vitamin B-12] Escitalopram [Lexapro] 10 mg PO DIRECTED 01/10/24 01/10/24 History Furosemide [Lasix] 20 mg PO DAILY 01/10/24 01/10/24 History Hydrocortisone [Cortizone-10] 1 applic TOPICAL DAILY PRN 01/10/24 01/10/24 History Melatonin 10 mg PO HS 01/10/24 01/10/24 History Omeprazole 40 mg PO DAILY 01/10/24 01/10/24 History Potassium Chloride [Klor-Con M20] 20 meq PO DIRECTED 01/10/24 01/10/24 History Spironolactone [Aldactone] 50 mg PO DAILY 01/10/24 01/10/24 History Vitamin E 800mg 800 mg PO DAILY 01/10/24 01/10/24 History carvediloL [Coreg] 3.125 mg PO BID 01/10/24 01/10/24 History Allergies Allergy/AdvReac Type Severity Reaction Status Date / Time CATGUT SUTURES Allergy Rash/Hives-Infection Uncoded 01/10/24 20:08 @ site petrolium based Allergy Rash/Hives Uncoded 01/10/24 20:08 topicals-neosporin Physical Exam Vitals: Vital Signs Temp Pulse Resp BP Pulse Ox 01/10/24 20:07 92 16 159/59 93 L 01/10/24 17:40 99.2 F 84 17 177/65 96 Intake and Output 01/10/24 01/10/24 01/10/24 06:59 14:59 22:59 Other: Weight 125.645 kg Results CBC & Chem 7: 01/10/24 18:15 01/10/24 18:15 Labs: Abnormal Lab Results - Last 24 Hours (Table) 01/10/24 01/10/24 01/10/24 Range/Units 18:15 18:15 18:15 WBC 3.1 L (3.8-10.6) k/uL RBC 2.39 L (4.30-5.90) m/uL Hgb 8.9 L (13.0-17.5) gm/dL Hct 26.5 L (39.0-53.0) % MCV 110.8 H (80.0-100.0) fL MCH 37.4 H (25.0-35.0) pg RDW 17.0 H (11.5-15.5) % Plt Count 119 L (150-450) k/uL Lymphocytes # 0.9 L (1.0-4.8) k/uL Macrocytosis Marked A PT 18.0 H (10.0-12.5) sec INR 1.8 H (<1.2) APTT 33.2 H (22.0-30.0) sec Sodium 133 L (137-145) mmol/L Chloride 95 L (98-107) mmol/L Carbon Dioxide 32 H (22-30) mmol/L Glucose 254 H (74-99) mg/dL Total Bilirubin 6.9 H (0.2-1.3) mg/dL Total Protein 5.1 L (6.3-8.2) g/dL Albumin 2.5 L (3.5-5.0) g/dL Assessment and Plan Assessment: I have seen and evaluated the patient today. I Discussed the case with the re sident and agree with the resident's findings I edited the assessment and plan as necessary as documented in the resident's note.
[2024-01-10] MEDS: ERGOCALCIFEROL 1,250 MCG (50,000 IU) CAPSULE PO SCH (23:38)
[2024-01-10 23:41] LABS: Glucose,Whole Blood 164 mg/dL (70-110)
[2024-01-11] MEDS: AMOXIC-POT CLAV 875-125MG 1 EACH TAB PO SCH (02:15)
[2024-01-11] MEDS: FUROSEMIDE 10 MG/ML 4 ML VIAL IV STA (02:15)
[2024-01-11] MEDS: LEVOTHYROXINE 25 MCG TAB PO SCH (05:39)
[2024-01-11 07:23] LABS: Glucose,Whole Blood 131 mg/dL (70-110)
[2024-01-11] MEDS: INSULIN DETEMIR (LEVEMIR) 100 UNIT/ML SYR SQ SCH (07:38)
[2024-01-11] MEDS: INSULIN ASPART (NovoLOG) 100 UNIT/ML VIAL SQ SCH (08:24)
[2024-01-11] MEDS: SPIRONOLACTONE 25 MG TAB PO SCH (08:29)
[2024-01-11] MEDS: carvediloL 3.125 MG TAB PO SCH (08:30)
[2024-01-11] MEDS: PANTOPRAZOLE 40 MG TABLET PO SCH (08:30)
[2024-01-11] MEDS: FUROSEMIDE 40 MG TAB PO SCH (08:30)
[2024-01-11] MEDS ORDERED: ENOXAPARIN 40 MG/0.4 ML SYRINGE SQ SCH (09:00)
[2024-01-11] MEDS ORDERED: SPIRONOLACTONE 25 MG TAB PO SCH (09:00)
[2024-01-11] MEDS ORDERED: hydrALAZINE HCL 50 MG TAB PO SCH (09:00)
[2024-01-11 09:05] LABS: Anisocytosis Slight; Basophils % (A) 0 %; Eosinophils # (A) 0.2 k/uL (0-0.7); Eosinophils % (A) 9 %; HGB 8.6 gm/dL (13.0-17.5); Lymphocytes # (A) 0.8 k/uL (1.0-4.8); Lymphocytes % (A) 30 %; MCH 38.9 pg (25.0-35.0); MCHC 35.7 g/dL (31.0-37.0); MCV 109.1 fL (80.0-100.0); Macrocytosis Marked; Mean Platelet Volume 8.9; Monocytes # (A) 0.3 k/uL (0-1.0); Monocytes % (A) 11 %; Neutrophils # (A) 1.2 k/uL (1.3-7.7); Neutrophils % (A) 46 %; Poikilocytosis Slight; RDW 17.5 % (11.5-15.5); WBC 2.6 k/uL (3.8-10.6)
[2024-01-11 09:10] LABS: INR 1.9 (<1.2); Prothrombin Time 18.7 sec (10.0-12.5)
[2024-01-11 09:18] LABS: ALT 23 U/L (4-49); AST 41 U/L (17-59); African American GFR (CKD) >90 (>60 ml/min/1.73 sqM); Albumin 2.2 g/dL (3.5-5.0); Alkaline Phosphatase 61 U/L (38-126); Anion Gap 2 mmol/L; Blood Urea Nitrogen 11 mg/dL (9-20); Calcium 8.3 mg/dL (8.4-10.2); Carbon Dioxide 38 mmol/L (22-30); Chloride 96 mmol/L (98-107); Glucose 116 mg/dL (74-99); LDH 250 U/L (120-246); Magnesium 1.7 mg/dL (1.6-2.3); Non-African American GFR(CKD) 83 (>60 ml/min/1.73 sqM); Phosphorus 2.8 mg/dL (2.5-4.5); Potassium 3.1 mmol/L (3.5-5.1); Sodium 136 mmol/L (137-145); Total Bilirubin 6.5 mg/dL (0.2-1.3); Total Protein 4.9 g/dL (6.3-8.2)
[2024-01-11 09:46] LABS: Platelet Count 85 k/uL (150-450)
[2024-01-11 09:48] LABS: Crenated RBC Present; RBC Fragments Present
--- NOTE | 2024-01-11 10:20 | US ---
EXAMINATION TYPE: US chest DATE OF EXAM: 01/11/2024 COMPARISON: CT 01/10/2024 XR 01/10/2024 CLINICAL INDICATION: Male, 68 years old with history of pleural effusion; TECHNIQUE: Targeted ultrasound of the posterior lower Right EXAM MEASUREMENTS: Right Pleural Effusion pocket size: 8.9 cm Right skin surface to fluid distance: 2.2 cm Left Pleural Effusion pocket size: NA cm Left skin surface to fluid distance: NA cm Right side marked for possible thoracentesis outside the dept. Pulmonologists are able to review the images in the patient?s EMR. IMPRESSIONS: Right pleural effusion. [facility], , 01/11/2024 10:18 AM
--- NOTE | 2024-01-11 11:42 | P.PN ---
Subjective Progress Note Date: 01/11/24 Hospital course Patient is a 68-year-old male with cirrhosis, type 2 diabetes, hypertension who was sent to the ED by his infectious disease doctor at [facility]. His infectious disease doctor ordered a chest x-ray for workup of pneumonia. The chest x-ray showed large right-sided pleural effusion so he was told to go to his nearest ED. Patient follows up at [facility] as he is on the liver transplant list. Patient seen this morning. He is denying any acute complaints. He denies any fever or chills. 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 Liver cirrhosis with portal hypertension and hyperbilirubinemia and coagulopathy Continue diuretics as above Our GI service is not available check ammonia Patient follows up at [facility] and is on the liver transplant list. Anemia No overt signs of bleeding Will continue to monitor hemoglobin Hemoglobin is stable this morning I will discontinue his Eliquis. Hypodense lesion on the right hepatic lobe Patient to follow-up with his liver transplant doctor at [facility] Adrenal mass Patient will need outpatient workup Recently admitted at [facility] for pneumonia Will continue with his home antibiotic Augmentin Pancytopenia likely due to liver cirrhosis Trend CBC Type 2 diabetes mellitus Sliding scale insulin and Levemir 16 units daily GERD Continue PPI Hypertension Will hold off on hydralazine to allow for diuresing Continue Coreg 3.125 mg p.o. twice daily Hyperlipidemia Continue statin Patient on anticoagulation Per he was started on Eliquis for coronary disease with triple-vessel disease Will hold off on anticoagulation due to anemia and coagulopathy CAD I spoke to the who said that patient has triple-vessel disease and he will be needing a CABG down the road. DVT prophylaxis: No anticoagulation in the setting of anemia Poor prognosis Objective - Vital Signs Vital signs: Vital Signs Temp 98.9 F 01/11/24 07:35 Pulse 71 01/11/24 11:03 Resp 18 01/11/24 11:03 BP 144/55 01/11/24 11:03 Pulse Ox 95 01/11/24 11:03 FiO2 Intake & Output 01/10/24 01/11/24 01/11/24 18:59 06:59 18:59 Weight 125.645 kg - Labs CBC & Chem 7: 01/11/24 08:24 01/11/24 08:24 Labs: Abnormal Lab Results - Last 24 Hours (Table) 01/10/24 01/10/24 01/10/24 Range/Units 18:15 18:15 18:15 WBC 3.1 L (3.8-10.6) k/uL RBC 2.39 L (4.30-5.90) m/uL Hgb 8.9 L (13.0-17.5) gm/dL Hct 26.5 L (39.0-53.0) % MCV 110.8 H (80.0-100.0) fL MCH 37.4 H (25.0-35.0) pg RDW 17.0 H (11.5-15.5) % Plt Count 119 L (150-450) k/uL Neutrophils # (1.3-7.7) k/uL Lymphocytes # 0.9 L (1.0-4.8) k/uL Macrocytosis Marked A PT 18.0 H (10.0-12.5) sec INR 1.8 H (<1.2) APTT 33.2 H (22.0-30.0) sec Sodium 133 L (137-145) mmol/L Potassium (3.5-5.1) mmol/L Chloride 95 L (98-107) mmol/L Carbon Dioxide 32 H (22-30) mmol/L Glucose 254 H (74-99) mg/dL POC Glucose (mg/dL) (70-110) mg/dL Calcium (8.4-10.2) mg/dL Total Bilirubin 6.9 H (0.2-1.3) mg/dL Lactate Dehydrogenase (120-246) U/L Total Protein 5.1 L (6.3-8.2) g/dL Albumin 2.5 L (3.5-5.0) g/dL 01/10/24 01/11/24 01/11/24 Range/Units 23:40 07:22 08:24 WBC 2.6 L (3.8-10.6) k/uL RBC 2.20 L (4.30-5.90) m/uL Hgb 8.6 L (13.0-17.5) gm/dL Hct 24.0 L (39.0-53.0) % MCV 109.1 H (80.0-100.0) fL MCH 38.9 H (25.0-35.0) pg RDW 17.5 H (11.5-15.5) % Plt Count 85 L (150-450) k/uL Neutrophils # 1.2 L (1.3-7.7) k/uL Lymphocytes # 0.8 L (1.0-4.8) k/uL Macrocytosis Marked A PT (10.0-12.5) sec INR (<1.2) APTT (22.0-30.0) sec Sodium (137-145) mmol/L Potassium (3.5-5.1) mmol/L Chloride (98-107) mmol/L Carbon Dioxide (22-30) mmol/L Glucose (74-99) mg/dL POC Glucose (mg/dL) 164 H 131 H (70-110) mg/dL Calcium (8.4-10.2) mg/dL Total Bilirubin (0.2-1.3) mg/dL Lactate Dehydrogenase (120-246) U/L Total Protein (6.3-8.2) g/dL Albumin (3.5-5.0) g/dL 01/11/24 01/11/24 Range/Units 08:24 08:24 WBC (3.8-10.6) k/uL RBC (4.30-5.90) m/uL Hgb (13.0-17.5) gm/dL Hct (39.0-53.0) % MCV (80.0-100.0) fL MCH (25.0-35.0) pg RDW (11.5-15.5) % Plt Count (150-450) k/uL Neutrophils # (1.3-7.7) k/uL Lymphocytes # (1.0-4.8) k/uL Macrocytosis PT 18.7 H (10.0-12.5) sec INR 1.9 H (<1.2) APTT (22.0-30.0) sec Sodium 136 L (137-145) mmol/L Potassium 3.1 L (3.5-5.1) mmol/L Chloride 96 L (98-107) mmol/L Carbon Dioxide 38 H (22-30) mmol/L Glucose 116 H (74-99) mg/dL POC Glucose (mg/dL) (70-110) mg/dL Calcium 8.3 L (8.4-10.2) mg/dL Total Bilirubin 6.5 H (0.2-1.3) mg/dL Lactate Dehydrogenase 250 H (120-246) U/L Total Protein 4.9 L (6.3-8.2) g/dL Albumin 2.2 L (3.5-5.0) g/dL
--- NOTE | 2024-01-11 12:05 | P.CNPUL ---
History of Present Illness Consult date: 01/11/24 Requesting physician: Feroz Cota Reason for consult: dyspnea, hypoxemia, pleural effusion, abnormal CXR/CT Chief complaint: Shortness of breath. History of present illness: Pulmonary consultation dated January 11, 2024. 68-year-old male with a history of chronic liver disease, currently listed for liver transplantation at [facility]. He presented to the emergency department on January 09 complaining of increasing shortness of breath. Our group was consulted because of a right-sided pleural effusion. The patient states that he is currently #4 on the transplant list at [facility] for liver. The patient states he has also had a previous thoracentesis in the past. Denies having a paracentesis abdominis in the past. In addition to chronic liver disease, he has a history of diabetes, hypertension, osteoarthritis, varicose veins, hemorrhoids, arthritis, and multiple previous surgeries. The patient was a former smoker. Currently, the patient is seen in the emergency department, room #8. He is on room air with saturations of 95%. He is not receiving any IV fluids. Current laboratory data includes a white count of 2.6, hemoglobin 8.6, hematocrit 24, and platelet count of 85,000. PT was 18.7 with an INR of 1.9. Sodium 136, potassium 3.1, chlorides 96, CO2 38, and a glucose of 116. Calcium 8.3. Total bilirubin 6.5. LDH was 250. Albumin was 2.2. Chest ultrasound shows an 8.9 cm pocket on the right side. Review of Systems REVIEW OF SYSTEMS: CONSTITUTIONAL: [Negative.] NEUROLOGIC: [ Negative.] HEENT: [ Negative.] CARDIAC: [Negative.] PULMONARY: Shortness of breath. GI: [Negative.] : [Negative.] RHEUMATOLOGIC: [ Negative.] IMMUNOLOGIC: [ Negative.] ENDOCRINE: [Negative. ] DERMATOLOGIC: [Negative.] Past Medical History Past Medical History: Diabetes Mellitus, Hypertension, Osteoarthritis (OA), Vascular Disorder Additional Past Medical History / Comment(s): VARICOSE VEINS,HAS HEMORRHOIDS- OCCASIONAL BLEED, ARTHRITIS IN KNEES & SHOULDERS, ANESMIA, DIVERTICULITIS, CIRRHOSIS OF THE LIVER-NON ALCOHOLIC. pt is on liver transplant list - December 2023 History of Any Multi-Drug Resistant Organisms: None Reported Past Surgical History: Orthopedic Surgery, Tonsillectomy Additional Past Surgical History / Comment(s): ARTHROSCOPIC LT KNEE, ROTATOR CUFF REPAIR RT SHOULDER. THROAT SURGERY FOR TUMOR, NON CANCEROUS. CATARACT SURGERY LEFT EYE Past Anesthesia/Blood Transfusion Reactions: No Reported Reaction Past Psychological History: No Psychological Hx Reported Smoking Status: Former smoker Past Alcohol Use History: None Reported Past Drug Use History: None Reported - Past Family History Mother Family Medical History: CVA/TIA, Hypertension Father Family Medical History: Dementia, Diabetes Mellitus Additional Family Medical History / Comment(s): ALZHEIMER'S Medications and Allergies Home Medications Medication Instructions Recorded Confirmed Type hydrALAZINE HCL [Apresoline] 50 mg PO BID 12/11/14 01/10/24 History Insulin Glargine [Lantus] 16 units SQ DAILY 07/16/17 01/10/24 History Levothyroxine Sodium 25 mcg PO DAILY 07/16/17 01/10/24 History Dicyclomine [Bentyl] 20 mg PO QID PRN 01/28/21 01/10/24 History Ergocalciferol [Vitamin D2 (1250 1,250 mcg PO TH 01/28/21 01/10/24 History Mcg = 82821 Iu)] Amoxic-Pot Clav 875-125Mg 1 tab PO BID 01/10/24 01/10/24 History [Augmentin 875-125] Apixaban [Eliquis] 2.5 mg PO BID 01/10/24 01/10/24 History Atorvastatin [Lipitor] 20 mg PO HS 01/10/24 01/10/24 History Cholestyramine (with Sugar) 4 gm PO BID PRN 01/10/24 01/10/24 History [Cholestyramine Packet] Cyanocobalamin (Vitamin B-12) 1,000 mcg PO DAILY 01/10/24 01/10/24 History [Vitamin B-12] Escitalopram [Lexapro] 10 mg PO DIRECTED 01/10/24 01/10/24 History Furosemide [Lasix] 20 mg PO DAILY 01/10/24 01/10/24 History Hydrocortisone [Cortizone-10] 1 applic TOPICAL DAILY PRN 01/10/24 01/10/24 History Melatonin 10 mg PO HS 01/10/24 01/10/24 History Omeprazole 40 mg PO DAILY 01/10/24 01/10/24 History Potassium Chloride [Klor-Con M20] 20 meq PO DIRECTED 01/10/24 01/10/24 History Spironolactone [Aldactone] 50 mg PO DAILY 01/10/24 01/10/24 History Vitamin E 800mg 800 mg PO DAILY 01/10/24 01/10/24 History carvediloL [Coreg] 3.125 mg PO BID 01/10/24 01/10/24 History Allergies Allergy/AdvReac Type Severity Reaction Status Date / Time CATGUT SUTURES Allergy Rash/Hives-Infection Uncoded 01/10/24 20:08 @ site petrolium based Allergy Rash/Hives Uncoded 01/10/24 20:08 topicals-neosporin Physical Exam Osteopathic Statement: *. No significant issues noted on an osteopathic structural exam other than those noted in the History and Physical/Consult. Vitals: Vital Signs Temp Pulse Resp BP Pulse Ox 01/11/24 11:03 71 18 144/55 95 01/11/24 08:05 94 L 01/11/24 07:35 98.9 F 70 18 123/40 92 L 01/11/24 04:23 70 16 136/50 01/11/24 02:18 98.1 F 71 16 135/61 94 L 01/11/24 00:31 78 16 158/59 93 L 01/10/24 23:42 98.2 F 01/10/24 23:34 74 16 160/61 92 L 01/10/24 22:24 72 18 150/56 92 L 01/10/24 20:07 92 16 159/59 93 L 01/10/24 17:40 99.2 F 84 17 177/65 96 Intake and Output 01/10/24 01/11/24 01/11/24 22:59 06:59 14:59 Other: Weight 125.645 kg No acute distress, oriented 3. No respiratory distress. Currently on room air. HEENT examination is grossly unremarkable. Mucous membranes are moist. No oral lesions. Neck supple. Full range of motion. No adenopathy thyromegaly or neck vein distention. Cardiovascular examination reveals regular rhythm rate. S1-S2 normal. No S3 or S4. No discernible murmur noted. Lungs reveal diminished breath sounds on the right. Dullness on percussion. Left lung is clear. Abdomen soft bowel sounds are heard. No masses or tenderness. Extremities are intact. No cyanosis clubbing or edema. Skin is without rash or lesion. Neurologic examination is brief but nonfocal. Results - Laboratory Findings CBC and BMP: 01/11/24 08:24 01/11/24 08:24 PT/INR, D-dimer PT 18.7 sec (10.0-12.5) H 01/11/24 08:24 INR 1.9 (<1.2) H 01/11/24 08:24 Abnormal lab findings: Abnormal Labs 01/10/24 01/10/24 01/10/24 18:15 18:15 18:15 WBC 3.1 L RBC 2.39 L Hgb 8.9 L Hct 26.5 L MCV 110.8 H MCH 37.4 H RDW 17.0 H Plt Count 119 L Neutrophils # Lymphocytes # 0.9 L Macrocytosis Marked A PT 18.0 H INR 1.8 H APTT 33.2 H Sodium 133 L Potassium Chloride 95 L Carbon Dioxide 32 H Glucose 254 H POC Glucose (mg/dL) Calcium Total Bilirubin 6.9 H Lactate Dehydrogenase Total Protein 5.1 L Albumin 2.5 L 01/10/24 01/11/24 01/11/24 23:40 07:22 08:24 WBC 2.6 L RBC 2.20 L Hgb 8.6 L Hct 24.0 L MCV 109.1 H MCH 38.9 H RDW 17.5 H Plt Count 85 L Neutrophils # 1.2 L Lymphocytes # 0.8 L Macrocytosis Marked A PT INR APTT Sodium Potassium Chloride Carbon Dioxide Glucose POC Glucose (mg/dL) 164 H 131 H Calcium Total Bilirubin Lactate Dehydrogenase Total Protein Albumin 01/11/24 01/11/24 08:24 08:24 WBC RBC Hgb Hct MCV MCH RDW Plt Count Neutrophils # Lymphocytes # Macrocytosis PT 18.7 H INR 1.9 H APTT Sodium 136 L Potassium 3.1 L Chloride 96 L Carbon Dioxide 38 H Glucose 116 H POC Glucose (mg/dL) Calcium 8.3 L Total Bilirubin 6.5 H Lactate Dehydrogenase 250 H Total Protein 4.9 L Albumin 2.2 L - Diagnostic Findings Chest x-ray: image reviewed CT scan - chest: image reviewed Assessment and Plan Assessment: End-stage liver disease, currently listed for transplantation at [facility]. Large right-sided pleural effusion, with anticipated thoracentesis. History of diabetes mellitus. History of hypothyroidism. History of hypertension. History of hyperlipidemia. History of osteoarthritis. History of diverticular disease. Plan: Plan dated January 11, 2024. The patient will undergo right-sided thoracentesis. Ultrasound has been done. Labs, x-rays, medications are reviewed. The patient was admitted primarily for shortness of breath. Thoracentesis should help. No additional recommendations are made. Prognosis is guarded. Time with Patient: Greater than 30
[2024-01-11 13:01] LABS: Glucose,Whole Blood 139 mg/dL (70-110)
--- NOTE | 2024-01-11 13:03 | PCN ---
PROCEDURE NOTE PROCEDURE PERFORMED: Right-sided thoracentesis. PREOPERATIVE DIAGNOSIS: Right pleural effusion. POSTOPERATIVE DIAGNOSIS: Right pleural effusion. OPERATORS: Dr. aCrtwright, Dr. Toth, and Dr. Vazquez. The patient's procedure took place in the emergency department, room #8. The posterior chest was marked by ultrasound. There was informed consent and universal timeout. Approximately 2 L of bloody fluid was removed from the right pleural space. The patient tolerated the procedure well. There was no immediate complication. The patient tolerated the procedure well. The fluid will be sent for analysis. A Followup chest x- ray will be ordered. MMODL / IJN: [id number] /
--- NOTE | 2024-01-11 13:40 | XR ---
EXAMINATION TYPE: XR chest 1V portable DATE OF EXAM: 01/11/2024 COMPARISON: 01/10/2024 INDICATION: Right-sided postthoracentesis TECHNIQUE: Single frontal view of the chest is obtained. FINDINGS: The heart size is normal. The pulmonary vasculature is normal. There is opacification within the right lung. Some aeration remains in the right upper lung field. Pl eural effusion is diminished over the interval. No pneumothorax is evident. IMPRESSION: 1. No pneumothorax postthoracentesis. Moderate pleural effusion may remain present. [facility], , 01/11/2024 1:38 PM
[2024-01-11 17:57] LABS: Glucose,Whole Blood 176 mg/dL (70-110)
[2024-01-11] MEDS ORDERED: Potassium Replacement Protocol 1 EACH MISC MISCELLANE PRN (19:57)
[2024-01-11 20:20] LABS: Glucose,Whole Blood 226 mg/dL (70-110)
[2024-01-11] MEDS: ATORVASTATIN 20 MG TAB PO SCH (20:40)
[2024-01-11] MEDS: MELATONIN 5 MG TABLET PO SCH (20:40)
[2024-01-11] MEDS: POTASSIUM CHLORIDE ER 20 MEQ TAB.ER PO SCH (20:40)
[2024-01-11 21:12] LABS: Appearance,BF Turbid (Clear)
[2024-01-11 22:43] LABS: Glucose, BF Source Pleural Fluid; Glucose, Body Fluid 140 mg/dL; LDH, Body Fluid Source Pleural Fluid; T. Protein, Body Fluid Source Pleural Fluid; Total Protein, Body Fluid 2350 mg/dL
[2024-01-12 04:27] VITALS: PULSE 74
[2024-01-12 06:19] LABS: Glucose,Whole Blood 119 mg/dL (70-110)
[2024-01-12 07:07] LABS: Anisocytosis Slight; Basophils % (A) 0 %; Eosinophils # (A) 0.1 k/uL (0-0.7); Eosinophils % (A) 6 %; HCT 23.5 % (39.0-53.0); HGB 7.9 gm/dL (13.0-17.5); Lymphocytes # (A) 0.7 k/uL (1.0-4.8); Lymphocytes % (A) 32 %; MCH 37.2 pg (25.0-35.0); MCHC 33.6 g/dL (31.0-37.0); MCV 110.7 fL (80.0-100.0); Macrocytosis Marked; Mean Platelet Volume 8.1; Monocytes # (A) 0.2 k/uL (0-1.0); Monocytes % (A) 10 %; Neutrophils % (A) 48 %; Poikilocytosis Slight; RBC 2.12 m/uL (4.30-5.90); RDW 16.8 % (11.5-15.5); WBC 2.1 k/uL (3.8-10.6)
[2024-01-12 07:18] LABS: ALT 24 U/L (4-49); AST 41 U/L (17-59); African American GFR (CKD) >90 (>60 ml/min/1.73 sqM); Alkaline Phosphatase 54 U/L (38-126); Anion Gap 0 mmol/L; Blood Urea Nitrogen 12 mg/dL (9-20); Calcium 8.1 mg/dL (8.4-10.2); Carbon Dioxide 37 mmol/L (22-30); Chloride 97 mmol/L (98-107); Glucose 102 mg/dL (74-99); Magnesium 1.9 mg/dL (1.6-2.3); Non-African American GFR(CKD) 81 (>60 ml/min/1.73 sqM); Potassium 3.7 mmol/L (3.5-5.1); Sodium 134 mmol/L (137-145); Total Bilirubin 5.5 mg/dL (0.2-1.3); Total Protein 4.4 g/dL (6.3-8.2)
[2024-01-12 07:41] LABS: Platelet Count 85 k/uL (150-450)
[2024-01-12] MEDS: ESCITALOPRAM 10 MG TAB PO SCH (08:58)
--- NOTE | 2024-01-12 09:37 | XR ---
EXAMINATION TYPE: XR chest 2V DATE OF EXAM: 01/12/2024 COMPARISON: 01/11/2024 INDICATION: Pleural effusion TECHNIQUE: Frontal and lateral views of the chest are obtained. FINDINGS: The heart size is normal. The pulmonary vasculature is normal. There is a moderate size right pleural effusion. Some extension towards the right apex is present. Th is may be increasing from comparison although this could be slightly changed in appearance from posit ioning.. IMPRESSION: 1. Moderate right pleural effusion. Follow-up recommended [facility], , 01/12/2024 9:34 AM
--- NOTE | 2024-01-12 10:02 | P.PN ---
Subjective Progress Note Date: 01/12/24 Principal diagnosis: Shortness of breath. Pulmonary consultation dated January 11, 2024. 68-year-old male with a history of chronic liver disease, currently listed for liver transplantation at [facility]. He presented to the emergency department on January 09 complaining of increasing shortness of breath. Our group was consulted because of a right-sided pleural effusion. The patient states that he is currently #4 on the transplant list at [facility] for liver. The patient states he has also had a previous thoracentesis in the past. Denies having a paracentesis abdominis in the past. In addition to chronic liver disease, he has a history of diabetes, hypertension, osteoarthritis, varicose veins, hemorrhoids, arthritis, and multiple previous surgeries. The patient was a former smoker. Currently, the patient is seen in the emergency department, room #8. He is on room air with saturations of 95%. He is not receiving any IV fluids. Current laboratory data includes a white count of 2.6, hemoglobin 8.6, hematocrit 24, and platelet count of 85,000. PT was 18.7 with an INR of 1.9. Sodium 136, potassium 3.1, chlorides 96, CO2 38, and a glucose of 116. Calcium 8.3. Total bilirubin 6.5. LDH was 250. Albumin was 2.2. Chest ultrasound shows an 8.9 cm pocket on the right side. Progress note dated January 12, 2024. 68-year-old male seen yesterday in consultation. He was admitted with a diagnosis of right sided pleural effusion and shortness of breath. We did a thoracentesis on him yesterday. He tolerated it well. The fluid turned out to be a transudate. Currently he is on room air. No IV fluids. White count 2.1, hemoglobin 7.9, hematocrit 23.5, platelet count 85,000. Sodium 134, potassium 3.7, chlorides 97, CO2 37, BUN 12, creatinine 0.95. Albumin is 2. Fluid LDH was 190. Fluid glucose is 140. Fluid protein was 2.35 g. Chest x-ray today shows a moderate right-sided pleural effusion. Objective - Vital Signs Vital signs: Vital Signs Temp 98.4 F 01/12/24 04:00 Pulse 74 01/12/24 04:00 Resp 16 01/12/24 04:00 BP 133/71 01/12/24 04:00 Pulse Ox 95 01/12/24 04:00 FiO2 Intake & Output 01/11/24 01/12/24 01/12/24 18:59 06:59 18:59 Weight 125.645 kg 120.3 kg Other: Voiding Method Toilet Urinal # Voids 1 - Exam No acute distress, oriented 3. No respiratory distress. Currently on room air. HEENT examination is grossly unremarkable. Mucous membranes are moist. No oral lesions. Neck supple. Full range of motion. No adenopathy thyromegaly or neck vein distention. Cardiovascular examination reveals regular rhythm rate. S1-S2 normal. No S3 or S4. No discernible murmur noted. Lungs reveal diminished breath sounds on the right. Dullness on percussion. Left lung is clear. Abdomen soft bowel sounds are heard. No masses or tenderness. Extremities are intact. No cyanosis clubbing or edema. Skin is without rash or lesion. Neurologic examination is brief but nonfocal. - Labs CBC & Chem 7: 01/12/24 06:25 01/12/24 06:25 Labs: Abnormal Lab Results - Last 24 Hours (Table) 01/11/24 01/11/24 01/11/24 Range/Units 12:15 12:59 17:54 WBC (3.8-10.6) k/uL RBC (4.30-5.90) m/uL Hgb (13.0-17.5) gm/dL Hct (39.0-53.0) % MCV (80.0-100.0) fL MCH (25.0-35.0) pg RDW (11.5-15.5) % Plt Count (150-450) k/uL Neutrophils # (1.3-7.7) k/uL Lymphocytes # (1.0-4.8) k/uL Macrocytosis Sodium (137-145) mmol/L Chloride (98-107) mmol/L Carbon Dioxide (22-30) mmol/L Glucose (74-99) mg/dL POC Glucose (mg/dL) 139 H 176 H (70-110) mg/dL Calcium (8.4-10.2) mg/dL Total Bilirubin (0.2-1.3) mg/dL Total Protein (6.3-8.2) g/dL Albumin (3.5-5.0) g/dL Fluid Appearance Turbid A (Clear) 01/11/24 01/12/24 01/12/24 Range/Units 20:17 06:17 06:25 WBC 2.1 L (3.8-10.6) k/uL RBC 2.12 L (4.30-5.90) m/uL Hgb 7.9 L (13.0-17.5) gm/dL Hct 23.5 L (39.0-53.0) % MCV 110.7 H (80.0-100.0) fL MCH 37.2 H (25.0-35.0) pg RDW 16.8 H (11.5-15.5) % Plt Count 85 L (150-450) k/uL Neutrophils # 1.0 L (1.3-7.7) k/uL Lymphocytes # 0.7 L (1.0-4.8) k/uL Macrocytosis Marked A Sodium (137-145) mmol/L Chloride (98-107) mmol/L Carbon Dioxide (22-30) mmol/L Glucose (74-99) mg/dL POC Glucose (mg/dL) 226 H 119 H (70-110) mg/dL Calcium (8.4-10.2) mg/dL Total Bilirubin (0.2-1.3) mg/dL Total Protein (6.3-8.2) g/dL Albumin (3.5-5.0) g/dL Fluid Appearance (Clear) 01/12/24 Range/Units 06:25 WBC (3.8-10.6) k/uL RBC (4.30-5.90) m/uL Hgb (13.0-17.5) gm/dL Hct (39.0-53.0) % MCV (80.0-100.0) fL MCH (25.0-35.0) pg RDW (11.5-15.5) % Plt Count (150-450) k/uL Neutrophils # (1.3-7.7) k/uL Lymphocytes # (1.0-4.8) k/uL Macrocytosis Sodium 134 L (137-145) mmol/L Chloride 97 L (98-107) mmol/L Carbon Dioxide 37 H (22-30) mmol/L Glucose 102 H (74-99) mg/dL POC Glucose (mg/dL) (70-110) mg/dL Calcium 8.1 L (8.4-10.2) mg/dL Total Bilirubin 5.5 H (0.2-1.3) mg/dL Total Protein 4.4 L (6.3-8.2) g/dL Albumin 2.0 L (3.5-5.0) g/dL Fluid Appearance (Clear) Microbiology - Last 24 Hours (Table) 01/11/24 12:15 Gram Stain - Preliminary Pleural Fluid Body Fluid Culture - Preliminary Assessment and Plan Assessment: End-stage liver disease, currently listed for transplantation at [facility]. Large right-sided pleural effusion, S/P right-sided thoracentesis, January 11, 2024. History of diabetes mellitus. History of hypothyroidism. History of hypertension. History of hyperlipidemia. History of osteoarthritis. History of diverticular disease. Plan: Plan dated January 11, 2024. The patient will undergo right-sided thoracentesis. Ultrasound has been done. Labs, x-rays, medications are reviewed. The patient was admitted primarily for shortness of breath. Thoracentesis should help. No additional recommendations are made. Prognosis is guarded. Plan dated January 12, 2024. The patient's fluid analysis, suggested a transudate. Protein was low. LDH was low. Labs, x-rays, medications are reviewed. The patient is asymptomatic. He is on room air. He is not having any shortness of breath. Labs, x-rays, and al l medications are reviewed. We will continue to follow. He may need another thoracentesis in the future. Time with Patient: Less than 30
[2024-01-12 11:18] VITALS: BP 148/65; RESP 18; TEMP 98.3
[2024-01-12 11:28] LABS: Glucose,Whole Blood 140 mg/dL (70-110)
--- NOTE | 2024-01-12 15:00 | P.DS ---
Providers Date of admission: 01/10/24 19:45 Expected date of discharge: 01/12/24 Attending physician: Feroz Cota MD Consults: 01/10/24 19:45 Consult Physician Routine Consulting Provider: Munir Cartwright Consult Reason/Comments: effusion Do you want consulting provider notified?: Yes Primary care physician: Physician Nonstaff Hospital Course: Discharge Diagnosis: Right-sided pleural effusion End-stage liver disease currently on transplant list, portal hypertension Pancytopenia DM Hypothyroidism HTN Dyslipidemia Obesity Hospital Course: Patient is a 68-year-old male with known cirrhosis currently on liver transplant list, type 2 diabetes, hypertension, and recent pneumonia who was sent to the hospital at direction of his infectious disease doctor for recurrent right pleural effusion. This was confirmed by chest x-ray in the emergency department. He underwent thoracentesis with pulmonary with removal of 2L of fluid. Repeat CXR 24 hours later whos moderate pleural effusionistent with known end-stage liver disease. Per pulmonary pleural fluid was transudative. Repeat chest x-ray showed no evidence of pneumothorax. Patient was determined stable for discharge. He will follow-up with his liver transplant team and establish a varnish dipper closer to home in [facility]. No medication changes made. Encouraged to follow-up with liver transplant team at [facility] for possible increase in diuretics. Discussed ability to arrange for outpatient pulmonary follow-up for recurrent thoracentesis. Patient seen and examined at bedside. Doing well. No complaints. Wants to go home. Vital signs reviewed and stable. General: Nontoxic, no distress, appears at stated age Cardiovascular: S1S2 reg, no murmur, positive posterior tibial pulse bilateral, Lungs: Decreased breath sounds bilaterally with bilateral rhonchi , no accessory muscle use Abdominal: Soft, nontender to palpation, no guarding, no appreciable organomegaly Ext: No gross muscle atrophy, 1+ edema b/l lower extremities, no contractures Neuro: CN II-XI grossly intact, no focal neuro deficits Psych: Alert, oriented, appropriate affect A total of 35 minutes of time were spent preparing this complex discharge summary. Patient was discharged on 01/12/24. This dictation was prepared using [employer] voice recognition software. Though every attempt is made to correct errors during dictation some may still exist. Patient Condition at Discharge: Stable Plan - Discharge Summary Discharge Rx Participant: No New Discharge Prescriptions: Continue hydrALAZINE HCL [Apresoline] 50 mg PO BID Levothyroxine Sodium 25 mcg PO DAILY Insulin Glargine [Lantus Vial] 16 units SQ DAILY Escitalopram [Lexapro] 10 mg PO DIRECTED Amoxic-Pot Clav 875-125Mg [Augmentin 875-125] 1 tab PO BID carvediloL [Coreg] 3.125 mg PO BID Spironolactone [Aldactone] 50 mg PO DAILY Furosemide [Lasix] 20 mg PO DAILY Apixaban [Eliquis] 2.5 mg PO BID Vitamin E 800mg 800 mg PO DAILY Cyanocobalamin (Vitamin B-12) [Vitamin B-12] 1,000 mcg PO DAILY Omeprazole 40 mg PO DAILY Cholestyramine (with Sugar) [Cholestyramine Packet] 4 gm PO BID PRN PRN Reason: Itching Potassium Chloride [Klor-Con M20] 20 meq PO DIRECTED Dicyclomine [Bentyl] 20 mg PO QID PRN PRN Reason: ibs Ergocalciferol [Vitamin D2 (1250 Mcg = 43984 Iu)] 1,250 mcg PO TH Atorvastatin [Lipitor] 20 mg PO HS Melatonin 10 mg PO HS Hydrocortisone [Cortizone-10] 1 applic TOPICAL DAILY PRN PRN Reason: Itching Discharge Medication List hydrALAZINE HCL [Apresoline] 50 mg PO BID 12/11/14 [History] Insulin Glargine [Lantus Vial] 16 units SQ DAILY 07/16/17 [History] Levothyroxine Sodium 25 mcg PO DAILY 07/16/17 [History] Dicyclomine [Bentyl] 20 mg PO QID PRN 01/28/21 [History] Ergocalciferol [Vitamin D2 (1250 Mcg = 52231 Iu)] 1,250 mcg PO TH 01/28/21 [History] Amoxic-Pot Clav 875-125Mg [Augmentin 875-125] 1 tab PO BID 01/10/24 [History] Apixaban [Eliquis] 2.5 mg PO BID 01/10/24 [History] Atorvastatin [Lipitor] 20 mg PO HS 01/10/24 [History] Cholestyramine (with Sugar) [Cholestyramine Packet] 4 gm PO BID PRN 01/10/24 [History] Cyanocobalamin (Vitamin B-12) [Vitamin B-12] 1,000 mcg PO DAILY 01/10/24 [History] Escitalopram [Lexapro] 10 mg PO DIRECTED 01/10/24 [History] Furosemide [Lasix] 20 mg PO DAILY 01/10/24 [History] Hydrocortisone [Cortizone-10] 1 applic TOPICAL DAILY PRN 01/10/24 [History] Melatonin 10 mg PO HS 01/10/24 [History] Omeprazole 40 mg PO DAILY 01/10/24 [History] Potassium Chloride [Klor-Con M20] 20 meq PO DIRECTED 01/10/24 [History] Spironolactone [Aldactone] 50 mg PO DAILY 01/10/24 [History] Vitamin E 800mg 800 mg PO DAILY 01/10/24 [History] carvediloL [Coreg] 3.125 mg PO BID 01/10/24 [History] Follow up Appointment(s)/Referral(s): Nonstaff,Physician [Primary Care Provider] - 1-2 days Patient Instructions/Handouts: Pleural Effusion (DC) Activity/Diet/Wound Care/Special Instructions: Activity: As tolerated Diet: low salt diet Special Instructions: Please contact your liver transplant team on Sunday to let them know that you had recurrent fluid on your lung (pleural effusion) requiring drainage (thoracentesis). They may want to increase your medications. Consider making an appointment with a varnish dipper near you who should be able to arrange outpatient lung drainage. Herrera Maldonado, DO Specialties Pulmonology, Sleep Disorders Locations [facility] [address] [place] [address], [address] [place] [address] Get Directions Discharge Disposition: HOME SELF-CARE
== END 2024-01-12 12:30 | disposition home or self-care (01) ==
LOC: EC 17:38 → 3SCARD 19:45 → INTOOBSV 19:45 → 3SCARD 01-11 14:57
PROVIDERS: ADMIT Internal Medicine; ATTEND Internal Medicine
DX: J90 Pleural effusion, not elsewhere classified (principal); K72.10 Chronic hepatic failure without coma; K74.60 Unspecified cirrhosis of liver; K76.6 Portal hypertension; D61.818 Other pancytopenia; E11.65 Type 2 diabetes mellitus with hyperglycemia; D68.9 Coagulation defect, unspecified; I10 Essential (primary) hypertension; E03.9 Hypothyroidism, unspecified; E78.5 Hyperlipidemia, unspecified; M19.90 Unspecified osteoarthritis, unspecified site; K21.9 Gastro-esophageal reflux disease without esophagitis; E27.9 Disorder of adrenal gland, unspecified; I25.10 Atherosclerotic heart disease of native coronary artery without angina pectoris; E66.9 Obesity, unspecified; Z68.33 Body mass index [BMI] 33.0-33.9, adult; Z87.891 Personal history of nicotine dependence; Z79.4 Long term (current) use of insulin; Z79.890 Hormone replacement therapy; Z79.01 Long term (current) use of anticoagulants
CPT/HCPCS: 32554; 96374; 99291; 36415; 94760; 93005; 87798 ×3; 87496; 87498; 87529; 88108; 88305; 83880; 80053 ×3; 89050; 82140; 83615 ×2; 83735 ×3; 84100; 84484; 85025 ×3; 85610 ×2; 85730; 87502; 87634; 87070; 87205; 87116; 87102; 87206; 82945; 84157; 84145; 87635; 71045; 71046 ×2; 76604; 71260; G0378 ×3; J1940; Q9967